=== PATIENT | female | born 1975 | race Caucasian/White ===

== ENCOUNTER 2021-08-23 08:29 | Emergency (ER) | payer OTHER, SELFPAY ==
[2021-08-23 08:41] VITALS: BP 126/78; PULSE 79; O2SAT 97
--- NOTE | 2021-08-23 08:41 | ED.FEMALEGU ---
HPI - Female Genitourinary General Chief complaint: Urogenital-Female Stated complaint: UTI SYMPTOMS WITH BLOOD Time Seen by Provider: 08/23/21 08:35 Source: patient Mode of arrival: Ambulatory Limitations: no limitations History of Present Illness HPI Narrative: This is a 46-year-old female who comes in with 6 days of urinary frequency with sense of incomplete emptying and has now developed dysuria and a small amount of hematuria. Patient states she has not any fevers or chills. No nausea or vomiting. No abdominal pain other than suprapubically. No back or flank pain. No diarrhea, constipation or other GI symptoms. No vaginal bleeding or discharge. Patient has had a hysterectomy. She is on Coumadin, atorvastatin, Singulair and Zyrtec as well as uses albuterol for factor 5 Leiden, coagulopathy and asthma. Patient is allergic to erythromycin. No other known drug allergies. No tobacco, occasional alcohol, no illicit. Related Data Home Medications Medication Instructions Recorded Confirmed albuterol sulfate 90 mcg/actuation 1 puff INH #0 ea 04/12/16 aerosol inhaler (Ventolin HFA) loratadine 10 mg capsule (Claritin 10 mg PO QDAYP PRN #0 sgl 04/12/16 Liqui-Gel) Previous Rx's Medication Instructions Recorded erythromycin 5 mg/gram (0.5 %) eye 0 mg OPHTH QID #3.5 gm 04/10/16 ointment azithromycin 250 mg tablet 250 mg PO QDAY #6 tab 10/10/16 (Zithromax) cephalexin 500 mg capsule 500 mg PO BID 7 Days #14 cap 08/23/21 phenazopyridine 200 mg tablet 200 mg PO TID PRN #6 tab 08/23/21 (Pyridium) Allergies Allergy/AdvReac Type Severity Reaction Status Date / Time erythromycin base Allergy Unknown Verified 08/23/21 08:46 [ERYTHROMYCIN BASE] Review of Systems Review of Systems ROS Unobtainable: All systems reviewed & are unremarkable except as noted in HPI and below Exam Narrative Exam Narrative: GENERAL: Alert and oriented x three, female in mild distress. HEENT: Head normocephalic, atraumatic, EOMI, pupils reactive, face symmetric, moist mucous membranes NECK: Supple, full range of motion CARDIOVASCULAR: Regular rate and rhythm without murmurs, rubs or gallops. RESPIRATORY: Breath sounds equal bilaterally, no wheezes rales or rhonchi. ABDOMEN: Soft, nontender. Normoactive bowel sounds all 4 quadrants. No guarding or rebound, rigidity, no mass : No CVA tenderness EXTREMITIES: Normal range of motion, no clubbing or edema. Neurovascularly intact NEUROLOGICAL: Cranial nerves II through XII grossly intact. Moving all extremities SKIN: Warm, dry, no petechiae, no rashes or lesions. Initial Vital Signs Initial Vital Signs: Vital Signs Pulse Rate 79 08/23/21 08:41 Blood Pressure 126/78 08/23/21 08:41 Pulse Oximetry 97 08/23/21 08:41 Course Orders Ordered: ED Orders 08/23/21 08:40 Urine Culture Stat Urine Microscopic Stat 08/23/21 09:15 Prothrombin Time INR Stat Discontinued Medications Cephalexin HCl (Cephalexin 250 Mg Capsule) 500 mg PO NOW ONE Stop: 08/23/21 08:53 Last Admin: 08/23/21 09:34 Dose: 500 mg Documented by: MELCHOR Phenazopyridine HCl (Phenazopyridine 100 Mg Tablet) 100 mg PO NOW ONE Stop: 08/23/21 08:53 Last Admin: 08/23/21 09:34 Dose: 100 mg Documented by: MELCHOR Vital Signs Vital signs: Vital Signs - 8 hr 08/23/21 08:41 08/23/21 08:44 08/23/21 10:24 Temperature 98.1 F Pulse Rate 79 66 Respiratory Rate 18 14 Blood Pressure 126/78 143/81 H Pulse Oximetry 97 99 MDM - Female Genitourinary Lab Data Labs: Lab Results 08/23/21 08/23/21 Range/Units 08:40 09:15 PT 23.1 H (10.1-12.7) SECONDS INR 2.0 H (0.9-1.3) Urine RBC 30-100/hpf H (0-5/HPF) Urine WBC >100/hpf H (0-5/HPF) Ur Squamous Epith Cells None seen (0-5/HPF) Urine Bacteria Few (2-10) H (None) Ur Culture Indicated? Specimen cultured Urine Dip Bedside Urine Glucose Negative Bedside Urine Bilirubin - Negative Bedside Urine Ketone - Negative Urine Specific [place] 1.010 Bedside Urine Occult Blood +++ Bedside Urine pH 7 Bedside Urine Protein + 30 Bedside Urine Urobilinogen - Negative Bedside Urine Nitrite - Negative Bedside Urine Leukocytes ++ 125 Esterase MDM Narrative Medical decision making narrative: This is a 46-year-old female who is on Coumadin for factor 5 Leiden other clotting disorders. Patient has symptoms consistent clinically with a UTI. INR was obtained she did have 1 on Tuesday it was 2. As or starting to new medications after discussion decision was made to go ahead repeat today for a new baseline. Plan to start oral Keflex, Pyridium for symptoms and return if worsening or other new changes such as fever, back or flank pain. Discharge Plan Departure Patient Disposition: Home Clinical Impression: UTI (urinary tract infection) Instructions: DI for Urinary Tract Infection (UTI) Activity Restrictions/Additional Instructions: Follow-up your not having improvement in your symptoms in 48-72 hours. Your INR today is 2. Take oral antibiotics until completely gone. You may take 1 tablet every 8 hours as needed for bladder spasms and burning, this medication will turn your urine bright orange. Prescription sent to [facility] in [place]. Please return for fevers greater 100.4 F, new worsening abdominal, back or flank pain, persistent vomiting, black or bloody stools, inability urinate or other new or concerning symptoms. Prescriptions: New cephalexin 500 mg capsule 500 mg PO BID 7 Days Qty: 14 0RF phenazopyridine [Pyridium] 200 mg tablet 200 mg PO TID PRN (Reason: pain) Qty: 6 0RF No Action erythromycin 1 GM ointment 0 mg OPHTH QID Qty: 3.5 0RF albuterol sulfate [Ventolin HFA] 90 MCG/PUFF HFA aerosol inhaler 1 puff INH Qty: 0 0RF loratadine [Claritin Liqui-Gel] 10 MG capsule 10 mg PO QDAYP PRNQty: 0 0RF azithromycin [Zithromax] 250 MG tablet 250 mg PO QDAY Qty: 6 0RF Referrals: Clarissa Bui PA-C [Primary Care Provider] -
[2021-08-23 08:44] VITALS: RESP 18; TEMP 36.7; BMI 35.4
[2021-08-23 09:11] LABS: Bacteria Urine Few (2-10); Culture Indicated Urine Specimen Cultured; RBC Urine 30-100/HPF (0-5/HPF); Squamous Epithelial Cell Urine None Seen (0-5/HPF); WBC Urine >100/HPF (0-5/HPF)
[2021-08-23] MEDS: PHENAZOPYRIDINE 100 MG TABLET PO (09:34)
[2021-08-23] MEDS: cephALEXin 250 MG CAPSULE 500 MG PO (09:34)
[2021-08-23 09:42] LABS: Prothrombin Time 23.1 SECONDS (10.1-12.7)
[2021-08-23 10:24] VITALS: BP 143/81; PULSE 66; RESP 14; O2SAT 99
== END 2021-08-23 10:27 | disposition home or self-care (01) ==
PROVIDERS: Emergency Provider Emergency Medicine; PCP Physician Assistant Medical
DX: N39.0 Urinary tract infection, site not specified (principal)
CPT/HCPCS: 36415; 81003; 81015; 85610; 87077; 87086; 87186; 99283